=== PATIENT | female | born 1970 | race Two or more races ===

== ENCOUNTER 2019-05-26 10:21 | Emergency (ER) | payer BC, MEDICARE ==
[2019-05-26 10:25] VITALS: BP 127/84
[2019-05-26] MEDS ORDERED: ACETAMINOPHEN 325 MG TABLET PO ONE (10:27)
--- NOTE | 2019-05-26 10:32 | ER Document Report ---
ED Medical Screen (RME) - General Chief Complaint: Back Pain Stated Complaint: FALL/BACK PAIN Time Seen by Provider: 05/26/19 10:24 TRAVEL OUTSIDE OF THE [place] IN LAST 30 DAYS: No - HPI Notes: 05/26/19 10:27 Patient is a 49-year-old female with history of chronic back pain with spinal cord stimulator in place who presents complaining of low back pain primarily to the left side status post fall 9 days ago. Pt states that she drank wine and took sleeping pills in an attempt to kill herself. She got into an argument with her daughter who then left when she tried to take her own life. Patient states that she tripped and injured her back in the process. Patient states that she did have a small bruise there that went away. Pain does not radiate. Patient states that she has also been urinating a little more frequently than normal since the fall. Pt states that she currently does not have SI/HI and feels like she needs to be mature and an adult. Denies any headache, fever, head injury, neck pain, URI, sore throat, chest pain, palpitations, syncope, cough, shortness of breath, wheeze, dyspnea, abdominal pain, nausea/vomiting/diarrhea, urinary retention, dysuria, hematuria, loss of control of bowel or bladder, saddle anesthesia, muscle paralysis/weakness, or rash. I have treated and performed a rapid initial assessment of this patient. A comprehensive ED assessment and evaluation of the patient, analysis of test results and completion of medical decision making process will be conducted by additional ED providers. PHYSICAL EXAMINATION: GENERAL: Well-appearing, well-nourished and in no acute distress. Back: FROM. Strength 5+/5. SLR neg. + tenderness mid l spine near L4. + mild left paraspinal tenderness. No foot drop. - Related Data Allergies/Adverse Reactions: No Known Allergies Allergy (Unverified 05/26/19 10:24) Past Medical History Musculoskeltal Medical History: Reports Hx Arthritis, Reports Hx Fibromyalgia, Reports Hx Muscle Spasm Past Surgical History: Reports: Hx Orthopedic Surgery - Immunizations Hx Diphtheria, Pertussis, Tetanus Vaccination: Yes Physical Exam - Vital signs Vitals: Temp Pulse Resp BP Pulse Ox 98.4 F 93 16 127/84 H 98 05/26/19 10:23 05/26/19 10:23 05/26/19 10:23 05/26/19 10:23 05/26/19 10:23 Course - Vital Signs Vital signs: Temp Pulse Resp BP Pulse Ox 98.4 F 93 16 127/84 H 98 05/26/19 10:23 05/26/19 10:23 05/26/19 10:23 05/26/19 10:23 05/26/19 10:23
--- NOTE | 2019-05-26 11:07 | RADIOLOGY REPORT (SQ) ---
EXAM DESCRIPTION: L SPINE WHOLE COMPLETED DATE/TIME: 05/26/2019 10:57 am REASON FOR STUDY: low back pain s/p fall COMPARISON: None. NUMBER OF VIEWS: Three views. TECHNIQUE: AP, lateral and sacral radiographic images acquired of the lumbar spine. LIMITATIONS: None. FINDINGS: MINERALIZATION: Normal. SEGMENTATION: Normal. No transitional anatomy. ALIGNMENT: Normal. VERTEBRAE: There is very slight wedging of the superior endplate of L2. Age is indeterminate. Simil ar changes are present at T11, T12 and L1. DISCS: Preserved height. No significant osteophytes or end plate irregularity. POSTERIOR ELEMENTS: Pedicles and facets are intact. No pars defect or posterior arch defects. HARDWARE: Neurostimulator is in place. PARASPINAL SOFT TISSUES: Normal. PELVIS: Intact as visualized. No fractures or worrisome bone lesions. SI joints intact. OTHER: No other significant finding. IMPRESSION: Mild wedging of the superior endplates from T11 through L1. Age is indeterminate. TECHNICAL DOCUMENTATION: JOB ID: [id number] [employer]- All Rights Reserved Reading location - IP/workstation name: [email or web address]
[2019-05-26 11:58] LABS: ABSOLUTE EOSINOPHILS # (AUTO) 0.3 10^3/uL (0.0-0.6); ABSOLUTE LYMPHOCYTES (AUTO) 1.4 10^3/uL (0.5-4.7); ABSOLUTE MONOCYTES (AUTO) 0.5 10^3/uL (0.1-1.4); ABSOLUTE NEUT (AUTO) 3.3 10^3/uL (1.7-8.2); BASOPHILS % (AUTO) 0.9 % (0-2); EOSINOPHILS % (AUTO) 5.3 % (0-6); HEMATOCRIT 37.2 % (36.0-47.0); HEMOGLOBIN 12.3 g/dL (12.0-15.5); LYMPHOCYTES % (AUTO) 25.4 % (13-45); MEAN CORPUSCULAR HEMOGLOBIN 28.7 pg (27.0-33.4); MEAN CORPUSCULAR HGB CONC 33.1 g/dL (32.0-36.0); MEAN CORPUSCULAR VOLUME 87 fl (80-97); MONOCYTES % (AUTO) 9.4 % (3-13); PLATELET COUNT 218 10^3/uL (150-450); RED BLOOD COUNT 4.29 10^6/uL (3.72-5.28); RED CELL DISTRIBUTION WIDTH 14.1 % (11.5-14.0); TOTAL CELLS COUNTED % (AUTO) 100 %; WHITE BLOOD COUNT 5.6 10^3/uL (4.0-10.5)
[2019-05-26 12:18] LABS: APPEARANCE,URINE CLEAR; BILIRUBIN,URINE NEGATIVE (NEGATIVE); COLOR,URINE YELLOW; GLUCOSE, URINE NEGATIVE (NEGATIVE); KETONES,URINE NEGATIVE (NEGATIVE); PROTEIN,URINE NEGATIVE (NEGATIVE); URINE SPECIFIC GRAVITY 1.004; UROBILINOGEN,URINE NEGATIVE mg/dL (<2.0)
[2019-05-26 12:22] LABS: ACETAMINOPHEN < 10 ug/mL (10-30); ALBUMIN 3.9 g/dL (3.5-5.0); ALCOHOL < 10 mg/dL (NONE DETECTED); ALKALINE PHOSPHATASE 80 U/L (38-126); ANION GAP 8 (5-19); ASPARTATE AMINO TRANSFERASE 23 U/L (14-36); BILIRUBIN,DIRECT 0.2 mg/dL (0.0-0.4); BILIRUBIN,TOTAL 0.4 mg/dL (0.2-1.3); BLOOD UREA NITROGEN 11 mg/dL (7-20); CALCIUM 9.4 mg/dL (8.4-10.2); CARBON DIOXIDE 27 mmol/L (22-30); CHLORIDE 104 mmol/L (98-107); GLUCOSE 135 mg/dL (75-110); POTASSIUM 4.2 mmol/L (3.6-5.0)
[2019-05-26 12:43] LABS: URINE AMPHETAMINES SCREEN NEGATIVE; URINE BARBITURATES SCREEN NEGATIVE; URINE BENZODIAZEPINES SCREEN NEGATIVE; URINE COCAINE SCREEN NEGATIVE; URINE MARIJUANA (THC) SCREEN NEGATIVE; URINE METHADONE SCREEN NEGATIVE; URINE PHENCYCLIDINE SCREEN NEGATIVE
--- NOTE | 2019-05-26 12:48 | ER Document Report ---
ED General - General Chief Complaint: Back Pain Stated Complaint: FALL/BACK PAIN Time Seen by Provider: 05/26/19 10:24 TRAVEL OUTSIDE OF THE [place] IN LAST 30 DAYS: No - HPI Patient complains to provider of: left sided pain Notes: Patient is a 49-year-old female with history of chronic back pain with spinal cord stimulator in place who presents complaining of low back pain primarily to the left side status post fall 9 days ago. Pt states that she drank wine and took sleeping pills in an attempt to kill herself. She got into an argument with her daughter who then left when she tried to take her own life. Patient states that she tripped and injured her back in the process. Patient states that she did have a small bruise there that went away. Pain does not radiate. Pt states that she currently does not have SI/HI and feels like she needs to be mature and an adult. Denies fever, chills, saddle anesthesia, urinary retention, IV drug use of blood thinners use. - Related Data Allergies/Adverse Reactions: No Known Allergies Allergy (Unverified 05/26/19 10:24) Past Medical History - Social History Smoking Status: Never Smoker Chew tobacco use (# tins/day): No Frequency of alcohol use: None Drug Abuse: None Family History: Reviewed & Not Pertinent Patient has suicidal ideation: Yes Patient has homicidal ideation: Yes Musculoskeletal Medical History: Reports Hx Arthritis, Reports Hx Fibromyalgia, Reports Hx Muscle Spasm Past Surgical History: Reports: Hx Orthopedic Surgery - Immunizations Hx Diphtheria, Pertussis, Tetanus Vaccination: Yes Review of Systems - Review of Systems Notes: REVIEW OF SYSTEMS: CONSTITUTIONAL: -fevers, -chills EENT: -eye pain, -difficulty swallowing, -nasal congestion CARDIOVASCULAR: -chest pain, -syncope. RESPIRATORY: -cough, -SOB GASTROINTESTINAL: -abdominal pain, -nausea, -vomiting, -diarrhea GENITOURINARY: -dysuria, -hematuria MUSCULOSKELETAL: positive left sided back pain, -neck pain SKIN: -rash or skin lesions. HEMATOLOGIC: -easy bruising or bleeding. LYMPHATIC: -swollen, enlarged glands. NEUROLOGICAL: -altered mental status or loss of consciousness, -headache, - neurologic symptoms PSYCHIATRIC: -anxiety, -depression. ALL OTHER SYSTEMS REVIEWED AND NEGATIVE. Physical Exam - Vital signs Vitals: Temp Pulse Resp BP Pulse Ox 98.4 F 93 16 127/84 H 98 10/11/19 10:23 05/26/19 10:23 05/26/19 10:23 05/26/19 10:23 05/26/19 10:23 - Notes Notes: PHYSICAL EXAMINATION: GENERAL: Well-appearing, well-nourished and in no acute distress. HEAD: Atraumatic, normocephalic. EYES: Pupils equal round and reactive to light, extraocular movements intact, sclera anicteric, conjunctiva are normal. ENT: nares patent, oropharynx clear without exudates. Moist mucous membranes. NECK: Normal range of motion, supple without lymphadenopathy LUNGS: Breath sounds clear to auscultation bilaterally and equal. No wheezes rales or rhonchi. HEART: Regular rate and rhythm without murmurs ABDOMEN: Soft, nontender, normoactive bowel sounds. No guarding, no rebound. No masses appreciated. EXTREMITIES: Normal range of motion, no pitting or edema. No cyanosis. NEUROLOGICAL: Cranial nerves grossly intact. Normal speech, normal gait. Normal sensory and motor exams. PSYCH: Normal mood, normal affect. SKIN: Warm, Dry, normal turgor, no rashes or lesions noted. BACK: No midline tenderness, pain is located in the musculature of the left lumbar spine Course - Re-evaluation Re-evalutation: 05/26/19 12:50 Well-appearing female no acute distress. Presents with some muscle pain in the left lower back. Hypertonic muscles. Patient's imaging studies unremarkable. Patient's extensive lab work-up unremarkable. Patient states she was just been drinking when she made a suicidal state segments. Patient is not suicidal ho micidal. Patient seen by psychiatry. Decision made she does not make involuntary commitment criteria at this time. Patient be discharged home with analgesia follow-up PCP given strict return precautions - Vital Signs Vital signs: Temp Pulse Resp BP Pulse Ox 98.4 F 93 16 127/84 H 98 05/26/19 10:23 05/26/19 10:23 05/26/19 10:23 05/26/19 10:23 05/26/19 10:23 - Laboratory Result Diagrams: 05/26/19 11:20 05/26/19 11:20 Laboratory results interpreted by me: 05/26/19 05/26/19 11: 11:20 RDW 14.1 H Glucose 135 H Salicylates 1.0 L Acetaminophen < 10 L Discharge - Discharge Clinical Impression: Back pain Qualifiers: Back pain location: low back pain Chronicity: chronic Back pain laterality: left Sciatica presence: without sciatica Qualified Code(s): M54.5 - Low back pain; G89.29 - Other chronic pain Condition: Stable Disposition: HOME, SELF-CARE Instructions: Low Back Pain ([facility]) Prescriptions: Methocarbamol [Robaxin 500 mg Tablet] 500 mg PO BID #20 tablet
--- NOTE | 2019-05-26 21:15 | EKG REPORT ---
SEVERITY:- BORDERLINE ECG - SINUS RHYTHM BORDERLINE T ABNORMALITIES, ANTERIOR LEADS : Confirmed by: Oswaldo Rodriguez MD 26-May-2019 21:14:02
== END 2019-05-26 13:40 | disposition home or self-care (01) ==
LOC: ER 10:21
DX: G89.29 Other chronic pain (principal); M54.5 Low back pain; W19.XXXA Unspecified fall, initial encounter
CPT/HCPCS: 36415; 72110; 80053; 80307; 81001; 85025; 93005; 93010; 99284

== ENCOUNTER 2020-01-11 20:30 | Emergency (ER) | payer BC, MEDICARE ==
[2020-01-11] MEDS ORDERED: ACETAMINOPHEN 325 MG TABLET PO ONE (21:21)
[2020-01-11 22:04] LABS: ABSOLUTE BASOPHILS # (AUTO) 0.1 10^3/uL (0.0-0.2); ABSOLUTE EOSINOPHILS # (AUTO) 0.3 10^3/uL (0.0-0.6); ABSOLUTE LYMPHOCYTES (AUTO) 2.5 10^3/uL (0.5-4.7); ABSOLUTE MONOCYTES (AUTO) 0.5 10^3/uL (0.1-1.4); ABSOLUTE NEUT (AUTO) 3.7 10^3/uL (1.7-8.2); BASOPHILS % (AUTO) 0.9 % (0-2); EOSINOPHILS % (AUTO) 4.4 % (0-6); HEMATOCRIT 38.2 % (36.0-47.0); HEMOGLOBIN 12.8 g/dL (12.0-15.5); LYMPHOCYTES % (AUTO) 35.6 % (13-45); MEAN CORPUSCULAR HEMOGLOBIN 29.5 pg (27.0-33.4); MEAN CORPUSCULAR HGB CONC 33.6 g/dL (32.0-36.0); MEAN CORPUSCULAR VOLUME 88 fl (80-97); MONOCYTES % (AUTO) 7.1 % (3-13); PLATELET COUNT 196 10^3/uL (150-450); RED BLOOD COUNT 4.35 10^6/uL (3.72-5.28); RED CELL DISTRIBUTION WIDTH 13.4 % (11.5-14.0); TOTAL CELLS COUNTED % (AUTO) 100 %
[2020-01-11 22:12] LABS: APPEARANCE,URINE CLEAR; BILIRUBIN,URINE NEGATIVE (NEGATIVE); COLOR,URINE STRAW; GLUCOSE, URINE NEGATIVE (NEGATIVE); KETONES,URINE NEGATIVE (NEGATIVE); LEUKOCYTE ESTERASE,URINE NEGATIVE (NEGATIVE); NITRITE,URINE NEGATIVE (NEGATIVE); PROTEIN,URINE NEGATIVE (NEGATIVE); URINE SPECIFIC GRAVITY 1.003; UROBILINOGEN,URINE NEGATIVE mg/dL (<2.0)
--- NOTE | 2020-01-11 22:15 | ER Document Report ---
ED General - General Chief Complaint: Suicidal Ideation Stated Complaint: PSYCH PROBLEM Time Seen by Provider: 01/11/20 21:50 TRAVEL OUTSIDE OF THE [place] IN LAST 30 DAYS: No - HPI Notes: Patient is a 49-year-old female with a history of depression who presents to the emergency department for evaluation of suicidal ideation. She states she has been arguing with her daughter. She had 3 doctors appointments this week, and she states her daughter was too busy to take her there, because she was "hanging out with friends." She states that her daughter is changed since she moved out of the house. She also states that her daughter had mentioned some issues to her father that she wished she had not, and he was "swearing at her." The patient states that as a result of these issues she is suicidal. She plans to overdose on her medications. She has a history of intentional overdose on sleeping pills. She denies any homicidal ideation. No visual or auditory hallucinations. She has been treated for depression, has never had a psychiatric hospitalization. She currently goes to [facility]. - Related Data Allergies/Adverse Reactions: No Known Allergies Allergy (Unverified 05/26/19 10:24) Home Medications: Duloxetine 60 mg twice daily, nabumetone 500 mg twice daily, Rexulti 2 mg daily, simvastatin 40 mg at bedtime, Klonopin 0.5 mg p.o. twice daily as needed, Lyrica 300 mg twice daily Past Medical History - General Information source: Patient - Social History Smoking Status: Never Smoker Frequency of alcohol use: None Drug Abuse: None Family History: Reviewed & Not Pertinent Patient has homicidal ideation: No Musculoskeletal Medical History: Reports Hx Arthritis, Reports Hx Fibromyalgia, Reports Hx Muscle Spasm, Reports Hx Sciatica Psychiatric Medical History: Reports: Hx Anxiety, Hx Depression Past Surgical History: Reports: Hx Orthopedic Surgery - Immunizations Hx Diphtheria, Pertussis, Tetanus Vaccination: Yes Review of Systems - Review of Systems Neurological/Psychological: See HPI -: Yes All other systems reviewed and negative Physical Exam - Vital signs Vitals: Temp Pulse Resp BP Pulse Ox 98.4 F 90 16 130/93 H 100 01/11/20 20:35 01/11/20 20:35 01/11/20 20:35 01/11/20 20:35 01/11/20 20:35 - Notes Notes: Vital signs reviewed, please refer to chart. Head is normocephalic, atraumatic. Pupils equal round, reactive to light. Neck is supple without meningismus. Heart is regular rate and rhythm. Lungs are clear to auscultation bilaterally. Abdomen is soft, nontender, normoactive bowel sounds throughout. Extremities without cyanosis, clubbing. Posterior calves are nontender. Peripheral pulses are equal. Skin is warm and dry. Patient is awake, alert, neurological exam is nonfocal. She makes good eye contact, mildly depressed affect. She does not seem to be responding to internal stimuli. Course - Re-evaluation Re-evalutation: 01/11/20 22:14 Patient presents to the emergency department for evaluation. She is suicidal, has a plan. 24-hour hold order was signed to keep the patient in the hospital. Awaiting medical clearance with laboratory investigations, as well as psych osocial evaluation, likely to take place tomorrow. At this time patient is stable, we will continue to monitor. 01/11/20 23:11 Laboratory investigations and EKG are unremarkable. Patient is medically cleared. Awaiting psychosocial evaluation. - Vital Signs Vital signs: Temp Pulse Resp BP Pulse Ox 98.3 F 90 16 130/93 H 100 01/11/20 20:51 01/11/20 20:35 01/11/20 20:35 01/11/20 20:35 01/11/20 20:35 - Laboratory Result Diagrams: 01/11/20 21:50 01/11/20 21:50 Laboratory results interpreted by me: 01/11/20 21:50 Salicylates < 1.0 L Acetaminophen < 10 L - EKG Interpretation by Me Additional EKG results interpreted by me: 01/11/20 23:12 Sinus mechanism with a rate of 87 bpm. First-degree AV block. Nonspecific ST changes, but no acute changes concerning for ischemia or infarction. No changes when compared to prior study. 01/11/20 23:12 Discharge - Discharge Clinical Impression: Suicidal ideation Condition: Stable Disposition: OTHER
[2020-01-11 22:24] LABS: ALBUMIN 4.3 g/dL (3.5-5.0); ALKALINE PHOSPHATASE 85 U/L (38-126); ANION GAP 6 (5-19); ASPARTATE AMINO TRANSFERASE 23 U/L (14-36); BILIRUBIN,DIRECT 0.2 mg/dL (0.0-0.4); BILIRUBIN,TOTAL 0.4 mg/dL (0.2-1.3); BLOOD UREA NITROGEN 15 mg/dL (7-20); CALCIUM 9.5 mg/dL (8.4-10.2); CARBON DIOXIDE 30 mmol/L (22-30); CHLORIDE 102 mmol/L (98-107); GLUCOSE 107 mg/dL (75-110); POTASSIUM 4.1 mmol/L (3.6-5.0); TOTAL PROTEIN 7.4 g/dL (6.3-8.2)
[2020-01-11 22:26] LABS: ACETAMINOPHEN < 10 ug/mL (10-30); ALCOHOL < 10 mg/dL (NONE DETECTED); SALICYLATE < 1.0 mg/dL (2.0-20.0)
[2020-01-11 22:33] LABS: URINE AMPHETAMINES SCREEN NEGATIVE; URINE BARBITURATES SCREEN NEGATIVE; URINE BENZODIAZEPINES SCREEN NEGATIVE; URINE COCAINE SCREEN NEGATIVE; URINE MARIJUANA (THC) SCREEN NEGATIVE; URINE METHADONE SCREEN NEGATIVE; URINE PHENCYCLIDINE SCREEN NEGATIVE
[2020-01-11] MEDS ORDERED: SIMVASTATIN 40 MG TABLET PO SCH (23:00)
[2020-01-11] MEDS: CLONAZEPAM 1 MG TABLET PO PRN (23:22)
[2020-01-11] MEDS: DULOXETINE HCL 30 MG CAPSULE.DR PO SCH (23:22)
[2020-01-11] MEDS: PREGABALIN 100 MG CAPSULE PO SCH (23:23)
[2020-01-11] MEDS: NAPROXEN 250 MG TABLET PO SCH (23:23)
--- NOTE | 2020-01-12 07:14 | EKG REPORT ---
SEVERITY:- ABNORMAL ECG - SINUS RHYTHM FIRST DEGREE AV BLOCK NONSPECIFIC T ABNORMALITIES, DIFFUSE LA ENLARGEMENT : Confirmed by: Oswaldo Rodriguez MD 12-Jan-2020 07:13:27
[2020-01-12] MEDS: NAPROXEN 250 MG TABLET PO SCH ×2 (09:06→09:37)
[2020-01-12] MEDS: DULOXETINE HCL 30 MG CAPSULE.DR PO SCH (09:37)
[2020-01-12] MEDS: CLONAZEPAM 1 MG TABLET PO PRN (10:22)
[2020-01-12] MEDS: PREGABALIN 100 MG CAPSULE PO SCH (10:23)
--- NOTE | 2020-01-12 13:50 | ER Document Report ---
Doctor's Note Notes: 01/12/20 12:53 Met with Patient regarding reason for admission. She indicated she was upset with her 22 yo daughter because her daughter was spending time with her friends and not attending to the Patient as she desired. Patient reported they live together and she cares for her grandchild when her daughter is at work. Patient reported she had 3 physician appointments scheduled this week and usually her daughter drives her to such appointments, however, her daughter was not home to take her to the appointments. Patient reported she feels as though her daughter should be at home taking care of her. 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 Her psychiatric provider is [facility] (Dina Cristobal for meds and Lola for therapy) and sees one or the other every week. She reports her medications are working
--- NOTE | 2020-01-12 14:42 | ER Document Report ---
Doctor's Note Notes: 01/12/20 14:37 49-year-old female who previously endorsed suicidal ideation but currently denies any suicidal ideation. States she was just angry with her daughter. Denies any desire to hurt herself. Patient denies any pain. States that the only reason why she refused to take care of her granddaughter yesterday was to get back at her daughter. We had extensive discussions about how to live in a multigenerational house hold, healthier behaviors for coping with stress and disagreement and the use of the family calendar to help her and her daughter coordinate their schedules between the patient's medical care and the need to care for the granddaughter. GENERAL: Alert, interacts well. No acute distress. HEAD: Normocephalic, atraumatic EYES: Pupils equal, round and reactive to light, extraocular movements intact. ENT: Oral mucosa moist, tongue midline. NECK: Full range of motion, supple, trachea midline. LUNGS: no respiratory distress. EXTREMITIES: Moves all 4 extremities spontaneously, no edema. No cyanosis. NEUROLOGICAL: Alert and oriented x3, normal speech. PSYCH: Normal mood, normal affect. SKIN: Warm, Dry, normal turgor, no rashes or lesions noted. 01/12/20 14:43 Patient is cleared from the medical and behavioral health standpoint. Discharged home.
[2020-01-12 15:10] VITALS: BP 103/68
== END 2020-01-12 15:10 | disposition home or self-care (01) ==
LOC: ER 20:30
DX: R45.851 Suicidal ideations (principal); M25.561 Pain in right knee; M79.604 Pain in right leg; F32.9 Major depressive disorder, single episode, unspecified; Z91.5 Personal history of self-harm; Z79.899 Other long term (current) drug therapy
CPT/HCPCS: 36415; 80053; 80307; 81001; 85025; 93005; 93010; 99285